=== PATIENT | female | born 1940 | race Caucasian/White ===

== ENCOUNTER 2019-06-20 13:23 | Day surgery (SDC) | payer MEDICARE, OTHER ==
[~2019-06-20 13:23] MED LIST: ASPI81CH; HYDR1TAB94 PO; LOSA25 PO; METF500C; MINO50; PRAV20; Percocet 5-3251 EACH PO
== END 2019-06-20 22:53 | disposition home or self-care (01) ==
LOC: WOUND 13:23
DX: E11.622 Type 2 diabetes mellitus with other skin ulcer (principal); L97.821 Non-pressure chronic ulcer of other part of left lower leg limited to breakdown of skin; L97.811 Non-pressure chronic ulcer of other part of right lower leg limited to breakdown of skin; I87.2 Venous insufficiency (chronic) (peripheral); I10 Essential (primary) hypertension; E11.42 Type 2 diabetes mellitus with diabetic polyneuropathy
CPT/HCPCS: G0463

== ENCOUNTER 2019-06-24 01:22 | Day surgery (SDC) | payer MEDICARE, OTHER | END 2019-06-24 22:52 | disposition home or self-care (01) | LOC: WOUND 01:22 | DX: Z53.9 Procedure and treatment not carried out, unspecified reason (principal) ==

== ENCOUNTER 2019-06-27 00:09 | Day surgery (SDC) | payer MEDICARE, OTHER | END 2019-06-27 22:42 | disposition home or self-care (01) | LOC: WOUND 00:09 | DX: L97.821 Non-pressure chronic ulcer of other part of left lower leg limited to breakdown of skin (principal); I87.2 Venous insufficiency (chronic) (peripheral); E11.51 Type 2 diabetes mellitus with diabetic peripheral angiopathy without gangrene; I10 Essential (primary) hypertension ==

== ENCOUNTER 2019-07-09 00:36 | Day surgery (SDC) | payer MEDICARE, OTHER | END 2019-07-09 22:36 | disposition home or self-care (01) | LOC: WOUND 00:36 | DX: E11.622 Type 2 diabetes mellitus with other skin ulcer (principal); L97.822 Non-pressure chronic ulcer of other part of left lower leg with fat layer exposed; E11.42 Type 2 diabetes mellitus with diabetic polyneuropathy; E11.51 Type 2 diabetes mellitus with diabetic peripheral angiopathy without gangrene; I73.9 Peripheral vascular disease, unspecified; I87.2 Venous insufficiency (chronic) (peripheral) ==

== ENCOUNTER 2019-07-18 00:19 | Day surgery (SDC) | payer MEDICARE, OTHER | END 2019-07-18 23:03 | disposition home or self-care (01) | LOC: WOUND 00:19 | DX: E11.622 Type 2 diabetes mellitus with other skin ulcer (principal); L97.821 Non-pressure chronic ulcer of other part of left lower leg limited to breakdown of skin; I87.2 Venous insufficiency (chronic) (peripheral); E11.42 Type 2 diabetes mellitus with diabetic polyneuropathy; E11.51 Type 2 diabetes mellitus with diabetic peripheral angiopathy without gangrene; I10 Essential (primary) hypertension | CPT/HCPCS: G0463 ==

== ENCOUNTER 2019-11-07 00:19 | Day surgery (SDC) | payer MEDICARE, OTHER ==
[~2019-11-07 00:19] MED LIST changes: +BASAGLAR K100 UNIT/1 SC; +CEPH500 PO
== END 2019-11-07 22:35 | disposition home or self-care (01) ==
LOC: WOUND 00:19
DX: I87.2 Venous insufficiency (chronic) (peripheral) (principal); L97.821 Non-pressure chronic ulcer of other part of left lower leg limited to breakdown of skin; L97.811 Non-pressure chronic ulcer of other part of right lower leg limited to breakdown of skin; E11.42 Type 2 diabetes mellitus with diabetic polyneuropathy; E11.622 Type 2 diabetes mellitus with other skin ulcer; I11.9 Hypertensive heart disease without heart failure; Z79.82 Long term (current) use of aspirin; Z79.4 Long term (current) use of insulin

== ENCOUNTER 2019-11-14 00:12 | Day surgery (SDC) | payer MEDICARE, OTHER | END 2019-11-14 23:06 | disposition home or self-care (01) | LOC: WOUND 00:12 | DX: E11.622 Type 2 diabetes mellitus with other skin ulcer (principal); E11.42 Type 2 diabetes mellitus with diabetic polyneuropathy; I11.9 Hypertensive heart disease without heart failure; I87.2 Venous insufficiency (chronic) (peripheral); L97.821 Non-pressure chronic ulcer of other part of left lower leg limited to breakdown of skin; L97.811 Non-pressure chronic ulcer of other part of right lower leg limited to breakdown of skin; Z79.899 Other long term (current) drug therapy; Z79.82 Long term (current) use of aspirin; Z79.4 Long term (current) use of insulin ==

== ENCOUNTER 2019-11-21 00:20 | Day surgery (SDC) | payer MEDICARE, OTHER | END 2019-11-21 22:35 | disposition home or self-care (01) | LOC: WOUND 00:20 | DX: I87.2 Venous insufficiency (chronic) (peripheral) (principal); L97.821 Non-pressure chronic ulcer of other part of left lower leg limited to breakdown of skin; L97.811 Non-pressure chronic ulcer of other part of right lower leg limited to breakdown of skin ==

== ENCOUNTER 2019-12-18 00:46 | Day surgery (SDC) | payer MEDICARE, OTHER | END 2019-12-18 22:38 | disposition home or self-care (01) | LOC: WOUND 00:46 | DX: I87.2 Venous insufficiency (chronic) (peripheral) (principal); L97.821 Non-pressure chronic ulcer of other part of left lower leg limited to breakdown of skin; L97.811 Non-pressure chronic ulcer of other part of right lower leg limited to breakdown of skin ==

== ENCOUNTER 2019-12-25 00:58 | Day surgery (SDC) | payer MEDICARE, OTHER | END 2019-12-25 12:00 | disposition home or self-care (01) | LOC: WOUND 00:58 | DX: E11.622 Type 2 diabetes mellitus with other skin ulcer (principal); L97.822 Non-pressure chronic ulcer of other part of left lower leg with fat layer exposed; E11.52 Type 2 diabetes mellitus with diabetic peripheral angiopathy with gangrene; I96 Gangrene, not elsewhere classified; I87.2 Venous insufficiency (chronic) (peripheral); E11.36 Type 2 diabetes mellitus with diabetic cataract; H26.9 Unspecified cataract; I89.0 Lymphedema, not elsewhere classified; G47.30 Sleep apnea, unspecified; M19.90 Unspecified osteoarthritis, unspecified site; E11.40 Type 2 diabetes mellitus with diabetic neuropathy, unspecified; I50.9 Heart failure, unspecified; F41.8 Other specified anxiety disorders; F41.9 Anxiety disorder, unspecified; Z79.82 Long term (current) use of aspirin; Z79.4 Long term (current) use of insulin; Z79.899 Other long term (current) drug therapy | CPT/HCPCS: G0463 ==

== ENCOUNTER 2020-08-05 17:30 | Emergency (ER) | payer MEDICARE, OTHER ==
[~2020-08-05] VITALS: Ht 162.6 cm; Wt 113.4 kg
[2020-08-05 18:03] LABS: BASOPHILS ABSOLUTE AUTO 0.04 K/mm3 (0.00-0.23); BASOPHILS PERCENT AUTO 1 % (0-2); EOSINOPHILS ABSOLUTE AUTO 0.11 K/mm3 (0.00-0.68); EOSINOPHILS PERCENT AUTO 2 % (0-6); Hematocrit 43.4 % (33.0-51.0); Hemoglobin 14.6 g/dL (11.5-16.0); IMMATURE GRAN ABSOLUTE AUTO 0.02 K/mm3 (0.00-0.10); IMMATURE GRAN PERCENT AUTO 0 % (0-1); LYMPHOCYTES PERCENT AUTO 27 % (21-46); MONOCYTES ABSOLUTE AUTO 0.39 K/mm3 (0.16-1.47); MONOCYTES PERCENT AUTO 7 % (4-13); Mean Corpuscular HGB 29.1 pg (26.0-34.0); Mean Corpuscular HGB Conc 33.6 g/dL (31.5-36.5); Mean Corpuscular Volume 87 fL (80-100); Mean Platelet Volume 9.1 fL (9.1-12.4); NEUTROPHILS ABSOLUTE AUTO 3.47 K/mm3 (1.96-9.15); NEUTROPHILS PERCENT AUTO 63 % (41-73); Platelet Count 237 K/mm3 (150-400); RDW Coefficient Variation 13.8 % (11.7-14.2); Red Blood Cell Count 5.01 M/mm3 (3.80-5.20); White Blood Cell Count 5.53 K/mm3 (4.00-11.30)
[2020-08-05 18:37] LABS: Alanine Aminotransfer (ALT/SGP 25 U/L (12-78); Albumin, Blood 3.5 g/dL (3.4-5.0); Albumin/Globulin Ratio 0.9 (0.8-1.8); Alk Phos 101 U/L (50-136); Anion Gap 6 mmol/L (6-16); Aspartate Aminotrans (AST/SGOT 14 U/L (12-37); Bilirubin, Total 0.4 mg/dL (0.1-1.0); Blood Urea Nitrogen 15 mg/dL (8-24); Bun/Creatinine Ratio 20.8 (12.0-20.0); CO2, Blood 26 mmol/L (21-32); Calcium, Blood 9.1 mg/dL (8.5-10.1); Chloride, Blood 105 mmol/L (98-108); Creatinine, Blood 0.72 mg/dL (0.40-1.00); Globulin, Blood 3.8 g/dL (2.2-4.0); Glomerular Filtration Rate >60 (60-); Glucose, Blood 283 mg/dL (70-99); Potassium, Blood 4.2 mmol/L (3.5-5.5); Sodium, Blood 137 mmol/L (136-145); Total Protein, Blood 7.3 g/dL (6.4-8.2)
[2020-08-05] MEDS ORDERED: TRAM50 PO (22:24)
[2020-08-05] MEDS ORDERED: AMOCLA875 PO (22:40)
[2020-08-05] MEDS ORDERED: MUPIROCIN1 G1 TOP (22:40)
== END 2020-08-05 23:30 | disposition home or self-care (01) ==
LOC: ER 17:30
PROVIDERS: Physician Assistant
DX: L03.116 Cellulitis of left lower limb (principal); E11.9 Type 2 diabetes mellitus without complications; Z86.73 Personal history of transient ischemic attack (TIA), and cerebral infarction without residual deficits; Z79.82 Long term (current) use of aspirin; Z79.899 Other long term (current) drug therapy; Z79.4 Long term (current) use of insulin
CPT/HCPCS: 36415; 73590; 80053; 83690; 84145; 85025; 99283-25; A9270

== ENCOUNTER 2020-09-09 02:58 | Day surgery (SDC) | payer MEDICARE, OTHER ==
[~2020-09-09 02:58] MED LIST changes: +AMOCLA875 PO; +MUPIROCIN1 G1 TOP; +TRAM50 PO
== END 2020-09-09 23:32 | disposition home or self-care (01) ==
LOC: WOUND 02:58
DX: E11.622 Type 2 diabetes mellitus with other skin ulcer (principal); L97.822 Non-pressure chronic ulcer of other part of left lower leg with fat layer exposed; I87.323 Chronic venous hypertension (idiopathic) with inflammation of bilateral lower extremity
CPT/HCPCS: A9270; G0463

== ENCOUNTER 2020-09-17 01:38 | Day surgery (SDC) | payer MEDICARE, OTHER | END 2020-09-17 23:37 | disposition home or self-care (01) | LOC: WOUND 01:38 | DX: E11.622 Type 2 diabetes mellitus with other skin ulcer (principal); L97.822 Non-pressure chronic ulcer of other part of left lower leg with fat layer exposed; I87.332 Chronic venous hypertension (idiopathic) with ulcer and inflammation of left lower extremity; I87.321 Chronic venous hypertension (idiopathic) with inflammation of right lower extremity | CPT/HCPCS: A9270; G0463 ==

== ENCOUNTER 2020-10-01 00:47 | Day surgery (SDC) | payer MEDICARE, OTHER | END 2020-10-01 22:44 | disposition home or self-care (01) | LOC: WOUND 00:47 | DX: E11.622 Type 2 diabetes mellitus with other skin ulcer (principal); L97.922 Non-pressure chronic ulcer of unspecified part of left lower leg with fat layer exposed; I87.323 Chronic venous hypertension (idiopathic) with inflammation of bilateral lower extremity | CPT/HCPCS: A9270 ==

== ENCOUNTER 2020-10-08 02:17 | Day surgery (SDC) | payer MEDICARE, OTHER ==
[~2020-10-08 02:17] MED LIST changes: -ASPI81CH; +ASPI81CH PO; -PRAV20; +PRAV20 PO
== END 2020-10-08 22:40 | disposition home or self-care (01) ==
LOC: WOUND 02:17
DX: E11.622 Type 2 diabetes mellitus with other skin ulcer (principal); L97.822 Non-pressure chronic ulcer of other part of left lower leg with fat layer exposed; I87.323 Chronic venous hypertension (idiopathic) with inflammation of bilateral lower extremity
CPT/HCPCS: A9270

== ENCOUNTER 2020-10-22 08:00 | Day surgery (SDC) | payer MEDICARE, OTHER | END 2020-10-22 23:59 | disposition home or self-care (01) | LOC: WOUND 08:00 | DX: E11.622 Type 2 diabetes mellitus with other skin ulcer (principal); I87.333 Chronic venous hypertension (idiopathic) with ulcer and inflammation of bilateral lower extremity; L97.822 Non-pressure chronic ulcer of other part of left lower leg with fat layer exposed | CPT/HCPCS: A9270 ==

== ENCOUNTER 2020-10-26 19:04 | Inpatient (IN) | payer MEDICARE, OTHER ==
[~2020-10-26] VITALS: Ht 162.6 cm; Wt 117.1 kg
[2020-10-26 19:35] LABS: BASOPHILS ABSOLUTE AUTO 0.03 K/mm3 (0.00-0.23); BASOPHILS PERCENT AUTO 0 % (0-2); EOSINOPHILS ABSOLUTE AUTO 0.08 K/mm3 (0.00-0.68); EOSINOPHILS PERCENT AUTO 1 % (0-6); Hematocrit 48.2 % (33.0-51.0); Hemoglobin 16.7 g/dL (11.5-16.0); IMMATURE GRAN ABSOLUTE AUTO 0.02 K/mm3 (0.00-0.10); IMMATURE GRAN PERCENT AUTO 0 % (0-1); LYMPHOCYTES ABSOLUTE AUTO 1.02 K/mm3 (0.84-5.20); LYMPHOCYTES PERCENT AUTO 14 % (21-46); MONOCYTES ABSOLUTE AUTO 0.55 K/mm3 (0.16-1.47); MONOCYTES PERCENT AUTO 8 % (4-13); Mean Corpuscular HGB Conc 34.6 g/dL (31.5-36.5); Mean Corpuscular Volume 84 fL (80-100); Mean Platelet Volume 9.3 fL (9.1-12.4); NEUTROPHILS ABSOLUTE AUTO 5.68 K/mm3 (1.96-9.15); NEUTROPHILS PERCENT AUTO 77 % (41-73); Platelet Count 249 K/mm3 (150-400); RDW Coefficient Variation 14.1 % (11.7-14.2); Red Blood Cell Count 5.75 M/mm3 (3.80-5.20); White Blood Cell Count 7.38 K/mm3 (4.00-11.30)
[2020-10-26 19:53] LABS: Albumin, Blood 3.8 g/dL (3.4-5.0); Albumin/Globulin Ratio 0.9 (0.8-1.8); Calcium, Blood 8.7 mg/dL (8.5-10.1); Creatinine, Blood 0.98 mg/dL (0.40-1.00); Globulin, Blood 4.2 g/dL (2.2-4.0); Potassium, Blood 3.8 mmol/L (3.5-5.5)
[2020-10-26 23:40] LABS: Base Excess Venous -1.8 mmol/L; Bicarbonate Venous 22.1 mmol/L (24.0-30.0); PCO2 Venous 50.1 mmHg (38-42); PO2 Venous 53.8 mmHg (38-42)
[2020-10-27 03:19] LABS: SARS-Cov-2 (COVID-19) PCR, MMC NEGATIVE (NEGATIVE)
[2020-10-27] MEDS ORDERED: Voltaren100 GM TOP (09:57)
--- NOTE | 2020-10-27 10:59 | NUR ---
ARRIVED FROM ED VIA Emeli MARTINEZ&CARINA, TRANSFERRED TO BED WITH ASSIST, PT IS WEAK, DEPENDS AND CLOTHES SATURATED WITH URINE, PT ASSISTED TO WASH UP, NEW DEPENDS AND GOWN GIVEN, CBG 357, DR. MONREAL NOTIFIED, SHAISTA LSS ORDERED.
--- NOTE | 2020-10-27 12:51 | NUR ---
PT TRANSFERRED VIA GURNY FROM FLOOR. History, Chart, Medications and Allergies reviewed before start of procedure. Lungs clear T/O to Auscultation. Patient confirms NPO status and agrees with scheduled surgery. Patient confirms NPO status and agrees with scheduled surgery.
--- NOTE | 2020-10-27 12:58 | NUR ---
PT'S WEDDING RING PLACED BY PT INTO THE ZIPPER POUCH OF HER PURSE AND WAS LEFT IN HER ROOM.
--- NOTE | 2020-10-27 17:13 | NUR ---
PT WITH DISCOLORATION AROUND MOUTH SHE STATES THAT THIS HAS BEEN LIKE THIS FOR A LONG TIME DUE TO ATB SHE WAS TAKING AT SOME PERIOD OF TIME
--- NOTE | 2020-10-27 17:56 | NUR ---
ARRIVED FROM PACU VIA NORMARMICHAEL, AWAKE, A&OX4, C/O BACK PAIN, RATES INCISIONAL PAIN AT 2/10, DENIES ANY NAUSEA, MIDLINE KADIE DSG INTACT, PIN POINT SIZED SS DRAINAGE NOTED ON DSG, MONITOR AND ANY CHANGES, REPORT TO NOC RN.
--- NOTE | 2020-10-28 06:16 | NUR ---
SHIFT SUMMARY POD1 UMBILICAL HERNIA REPAIR, A/O X4, VSS, TOLERATING CLEAR DIET, VOIDING INCONTINENTLY c ATTENDS IN PLACE, NO BM THIS SHIFT, PAIN WELL MANAGED PER EMAR, NO ACUTE EVENTS THIS SHIFT. CALL LIGHT IN REACH, WILL CTM AND REPORT TO DAY RN.
--- NOTE | 2020-10-28 17:18 | NUR ---
PT HAD SOME NAUSEA; MED WITH ZOFRAN. HAD EMESIS; CALLED DR AND GOT PHENERGAN ORDERED AND ADMINISTERED. HAD SECOND EPISODE OF EMESIS. WILL PUT IN ABD XRAY IF EMESIS PERSISTS.
--- NOTE | 2020-10-28 19:18 | NUR ---
SHIFT SUMMARY PT HAS BEEN A/O X4 TODAY. S/P HERNIA REPAIR. PT HAS NOT PASSED FLATUS OR HAD BM, AND THIS AFTERNOON HAS HAD SEVERAL EPISODES OF EMESIS DESPITE MEDICATION. BOWEL TONES ARE HYPOACTIVE. PAIN HAS BEEN MANAGED WITH PO PAIN MED PRN PER ORDERS. SHE HAS WORKED WITH THERAPY WHO IS RECCOMENDING SNF FOR REHAB.
--- NOTE | 2020-10-29 07:19 | NUR ---
SHIFT SUMMARY POD2 UMBILICAL HERNIA REPAIR, A/O X4 THOUGH SHE HAS HAD SOME MILD CONFUSION PARTWAY THROUGH THE SHIFT BUT NOT IMPULSIVE, C/O N/V, CXR OBTAINED PER ORDER AND AWAITING RESULTS, N/V SUBSIDED DURING THE MIDDLE PART OF THE SHIFT AND RESUMED JUST BEFORE MORNING VITALS, PT WEAK ON HER FEET c VERY SLOW SHIFTING OF HER FEET WHEN SHE WALKS, ONLY ABLE TO DO SHORT STANDS AND STAND PIVOTS, PAIN WELL MANAGED. NO OTHER EVENTS THIS SHIFT. CALL LIGHT IN REACH, REPORT GIVEN TO DAY RN.
--- NOTE | 2020-10-29 16:49 | NUR ---
SHIFT SUMMARY PT HAS BEEN A/O THIS SHIFT. SHE SEEMED SLIGHTLY CONFUSED THIS MORNING, BUT THIS HAS CLEARED UP T/O THE DAY. SHE WORKED WITH THERAPY TODAY AND HAS BEEN SITTING UP IN RECLINER CHAIR MOST OF THE SHIFT. WOUND CENTER CONSULTED TODAY FOR LLE WOUND. PAIN MANAGED WITH PO PAIN MED PRN PER ORDER. PT HAS NOT HAD EMESIS TODAY BUT HAS NOT BEEN TOLERATING MUCH PO INTAKE. SHE HAS BEEN OKAY'D TO SIP ON WATER TODAY BY DR GOMES. PT HAS NOT HAD FLATUS OR BM TODAY; PROVIDER AWARE. PLAN IS TO DC TO SNF, POSSIBLY MONDAY.
--- NOTE | 2020-10-30 04:10 | NUR ---
SHIFT SUMMARY NO ACUTE CHANGES THIS SHIFT. PT RESTED WELL T/O NIGHT. KADIE DRESSING REMAINS UNCHANGED. PT REPORTS FLATUS. X1 PAIN PILL AT BEGINNING OF SHIFT. PULL UPS CHANGED PRN FOR INCONTINENCE. PT USES CALL LIGHT APPROPRIATELY.
[2020-10-30 05:04] LABS: BASOPHILS ABSOLUTE AUTO 0.05 K/mm3 (0.00-0.23); BASOPHILS PERCENT AUTO 1 % (0-2); EOSINOPHILS ABSOLUTE AUTO 0.14 K/mm3 (0.00-0.68); EOSINOPHILS PERCENT AUTO 2 % (0-6); Hematocrit 45.2 % (33.0-51.0); Hemoglobin 14.5 g/dL (11.5-16.0); IMMATURE GRAN ABSOLUTE AUTO 0.03 K/mm3 (0.00-0.10); IMMATURE GRAN PERCENT AUTO 1 % (0-1); LYMPHOCYTES ABSOLUTE AUTO 1.34 K/mm3 (0.84-5.20); LYMPHOCYTES PERCENT AUTO 22 % (21-46); MONOCYTES ABSOLUTE AUTO 0.73 K/mm3 (0.16-1.47); MONOCYTES PERCENT AUTO 12 % (4-13); Mean Corpuscular HGB 28.8 pg (26.0-34.0); Mean Corpuscular HGB Conc 32.1 g/dL (31.5-36.5); Mean Corpuscular Volume 90 fL (80-100); Mean Platelet Volume 9.1 fL (9.1-12.4); NEUTROPHILS ABSOLUTE AUTO 3.71 K/mm3 (1.96-9.15); NEUTROPHILS PERCENT AUTO 62 % (41-73); Platelet Count 270 K/mm3 (150-400); RDW Coefficient Variation 14.2 % (11.7-14.2); RDW Standard Deviation 46.7 fL (35.1-46.3); Red Blood Cell Count 5.04 M/mm3 (3.80-5.20)
[2020-10-30 05:36] LABS: Anion Gap 9 mmol/L (6-16); Blood Urea Nitrogen 34 mg/dL (8-24); CO2, Blood 31 mmol/L (21-32); Calcium, Blood 8.5 mg/dL (8.5-10.1); Chloride, Blood 99 mmol/L (98-108); Creatinine, Blood 0.83 mg/dL (0.40-1.00); Glomerular Filtration Rate >60 (60-); Glucose, Blood 139 mg/dL (70-99); Potassium, Blood 3.4 mmol/L (3.5-5.5); Sodium, Blood 139 mmol/L (136-145)
[2020-10-30] MEDS ORDERED: ONDA4ODT MM (10:57)
[2020-10-30] MEDS ORDERED: PROM25 PO (10:57)
[2020-10-30] MEDS ORDERED: VISBIOME 112.51 EACH PO (10:58)
[2020-10-30] MEDS ORDERED: HYDR1TAB94 PO (10:58)
[2020-10-30] MEDS ORDERED: KLOR-CON 1010 ME3 PO (10:59)
--- NOTE | 2020-10-30 12:43 | NUR ---
CLEANSE WITH NS, PAT DRY GAUZE, APPLY CALCIUM ALGINATE TO WOUND BED, COVER WITH EXU-DRY, APLLY COBAN 2 LAYER COMPRESSION. OKAY TO USE 3 LAYER IF COBAN NOT AVAILABLE. CHANGE 2X WEEKLY
[2020-10-30 14:09] LABS: SARS-Cov-2 (COVID-19) PCR, MMC NEGATIVE (NEGATIVE)
--- NOTE | 2020-10-30 18:43 | NUR ---
SHIFT SUMMARY PT POD #3 FOR INCARCERATED HERNIA REPAIR WITH MESH. PT REPORTS NO PAIN AND KADIE DRESSING AT [facility] [employer]. WOUND DRESSING ON LEG CHANGED TODAY BY FORMULA TECHNICIAN AND NEW WOUND DRESSING ORDERS IN EMR. PT EXPERIENCED TWO EPISODES OF EMESIS TODAY AND WAS TREATED PER EMR. HAVING A HARD TIME TOLERATING PO INTAKE WITHOUT VOMITING. PLAN IS FOR THE PT TO DC TO [facility] TOMORROW AT 1400. VSS. WILL REPORT TO ONCOMING RN.
--- NOTE | 2020-10-30 20:44 | NUR ---
NOTIFIED DR. GOMES OF EMESIS. ORDERS TO MAKE PT NPO AND TO MOBILIZE PT.
--- NOTE | 2020-10-31 04:27 | NUR ---
PT TRYING TO GET OOB AND VERY CONFUSED. SHE THOUGHT SHE WAS AT HOME AND HEARING HER DOG BARK OUTSIDE. REORIENTED AND REPOSITIONED BACK IN BED. PT APPEARED TO BE DIAPHORETIC AND COMPLAINED OF INDIGESTION. VITALS TAKEN. HEART RATE IRREGULAR SOUNDING UPON AUSCULTATION AND RADIAL PULSE ALSO FELT TO BE IRREGULAR. VITAL SIGN MACHINE COULD NOT GET AN ACCURATE READING ON HEART RATE. PT ALSO DESATTING TO 88% ON RA. 2L VIA NC PLACED. DR. MONREAL NOTIFIED OF CHANGES. NEW ORDERS TO PLACE TELE AND ADD TROPONINS ONTO MORNING LABS. BED ALARM IN PLACE FOR SAFETY. WILL CONT TO MONITOR.
--- NOTE | 2020-10-31 04:36 | NUR ---
SHIFT SUMMARY PT HAS BEEN ALERT AND ORIENTED ALL NIGHT UNTIL RECENTLY (SEE NURSE NOTE). PT HAS BEEN VOMITTING LARGE AMOUNTS OF EMESIS AND CONSTANTLY NAUSEATED. ANTIEMETICS INEFFECTIVE. BTS HYPOACTIVE AND PT DENIES FLATUS. DR. GOMES NOTIFIED. PT MADE NPO. INCONTINENT OF URINE AND CHANGING ATTENDS PRN. PT VERY WEAK AND IS A 2 MAX ASSIST OOB. NEW ORDER BY HOSPITALIST TO PLACE TELE TO MONITOR CARDIAC STATUS (SEE NURSE NOTE). BED ALARM IN PLACE FOR SAFETY AT THIS TIME. CALL LIGHT WITHIN REACH.
--- NOTE | 2020-10-31 06:03 | NUR ---
[employer] NOTIFIED THIS RN OF HEART RATE IN THE 200S AND SUSTAINING 160-190S. DR. MONREAL NOTIFIED. ORDERS TO TRANSFER TO PCU STATUS. NEW ORDERS ENTERED FOR CARDIZEM DRIP TO BE STARTED ONCE IN PCU. REPORT GIVEN TO FORESTRY INSTRUCTOR.
[2020-10-31 06:18] LABS: BASOPHILS ABSOLUTE AUTO 0.05 K/mm3 (0.00-0.23); BASOPHILS PERCENT AUTO 0 % (0-2); Hematocrit 47.5 % (33.0-51.0); LYMPHOCYTES ABSOLUTE AUTO 0.76 K/mm3 (0.84-5.20); LYMPHOCYTES PERCENT AUTO 7 % (21-46); MONOCYTES ABSOLUTE AUTO 1.36 K/mm3 (0.16-1.47); MONOCYTES PERCENT AUTO 12 % (4-13); Mean Corpuscular HGB 29.1 pg (26.0-34.0); Mean Corpuscular HGB Conc 33.7 g/dL (31.5-36.5); Mean Corpuscular Volume 86 fL (80-100); Mean Platelet Volume 9.4 fL (9.1-12.4); Platelet Count 273 K/mm3 (150-400); RDW Coefficient Variation 13.8 % (11.7-14.2); RDW Standard Deviation 43.8 fL (35.1-46.3); White Blood Cell Count 11.68 K/mm3 (4.00-11.30)
[2020-10-31 06:24] LABS: EOSINOPHILS ABSOLUTE AUTO 0.01 K/mm3 (0.00-0.68); EOSINOPHILS PERCENT AUTO 0 % (0-6); IMMATURE GRAN ABSOLUTE AUTO 0.08 K/mm3 (0.00-0.10); IMMATURE GRAN PERCENT AUTO 1 % (0-1); NEUTROPHILS ABSOLUTE AUTO 9.42 K/mm3 (1.96-9.15); NEUTROPHILS PERCENT AUTO 81 % (41-73)
[2020-10-31 06:55] LABS: Alanine Aminotransfer (ALT/SGP 16 U/L (12-78); Albumin, Blood 2.7 g/dL (3.4-5.0); Albumin/Globulin Ratio 0.6 (0.8-1.8); Alk Phos 79 U/L (50-136); Anion Gap 10 mmol/L (6-16); Aspartate Aminotrans (AST/SGOT 30 U/L (12-37); Bilirubin, Total 0.7 mg/dL (0.1-1.0); Blood Urea Nitrogen 40 mg/dL (8-24); Bun/Creatinine Ratio 46.6 (12.0-20.0); CO2, Blood 33 mmol/L (21-32); Calcium, Blood 8.3 mg/dL (8.5-10.1); Chloride, Blood 95 mmol/L (98-108); Creatinine, Blood 0.86 mg/dL (0.40-1.00); Globulin, Blood 4.2 g/dL (2.2-4.0); Glomerular Filtration Rate >60 (60-); Glucose, Blood 76 mg/dL (70-99); Sodium, Blood 138 mmol/L (136-145); Total Protein, Blood 6.9 g/dL (6.4-8.2)
--- NOTE | 2020-10-31 12:58 | NUR ---
UPDATE PT'S DAUGHTER UPDATED ON PT'S TRANSFER TO UNIT AND STATUS.
--- NOTE | 2020-10-31 15:03 | NUR ---
UPDATE/IV INFILTRATION AMIO GTT INFILTRATED IN PT'S R AC. PHARMACY NOTIFIED, INSTRUCTED TO PLACE ICE AND CAN REQUEST PRESCRIPTION FOR HYDROCORTISONE CREAM IF PT UNCOMFORTABLE. PHYSICIAN NOTIFIED. PT HAS LITTLE DISCOMFORT AT THIS TIME.
--- NOTE | 2020-10-31 15:44 | NUR ---
CARDIOLOGY UPDATE CARDIOLOGY CONSULTED D/T PT CONT TO HAVE HIGH HR. DR. WELLS ORDERS TO HAVE ANOTHER AMIO GTT BOLUS AT THIS TIME. DIG LOADING, SEE EMAR. ORDERS FOR LOPRESSOR PUSH IF HR SUSTAINS OVER 110.
--- NOTE | 2020-10-31 16:30 | NUR ---
UPDATE PT'S HR TRENDING DOWN AFTER LOPRESSOR PUSH. HR IN 70'S-80'S. CARDIOLOGY INSTRUCTED TO HOLD AMIO GTT BOLUS.
--- NOTE | 2020-10-31 17:00 | NUR ---
PHYSICIAN UPDATED PHYSICIAN AWARE OF PT'S HYPERTENSIVE STATE AND THAT JVD IS NOTED AT THIS TIME. PHYSICIAN TO PLACE ORDERS
--- NOTE | 2020-10-31 18:08 | NUR ---
SHIFT SUMMARY PT LETHARGIC. ALERT. BED ALARM IN PLACE FOR REPORTS OF OCCASIONAL CONFUSION. DAUGHTER UPDATED ON PT'S TRANSFER TO UNIT AND STATUS. HR TACHY, SEE NOTES AND EMAR. PT HYPERTENSIVE AND JVD NOTED. SEE NOTES AND EMAR. PHYSICIAN AWARE. PT TURNED Q 2 HRS. DRESSING ON ABD WNL. NO DRAINAGE NOTES. PT REPORTS PAIN T/O SHIFT AND HAS N/V T/O SHIFT. DEPENDS IN PLACE FOR INCONTINENCE. OXYGEN SATURAITON MAINTAINED ABOVE 92% ON 3 L VIA NC. WILL CONT TO MONITOR UNTIL REPROT GIVEN TO NIGHTSHIFT RN.
--- NOTE | 2020-10-31 18:48 | NUR ---
UPDATE DR. GOMES UPDATED ON PT REGARDING HYPERTENSION, HIGH HR, PAIN AND N/V. PHYSICIAN TO PUT ORDERS IN FOR CT SCAN OF ABD AND NG TUBE IF N/V PERSISTS.
--- NOTE | 2020-11-01 03:13 | NUR ---
DR. MONREAL UPDATED ON PATIENT HR SUSTAINING IN THE 140'S EVEN ON AMIO DRIP RUNNING AND WITH 3 METO PUSHES SO FAR THIS SHIFT. WILL DROP BACK TO 80'S-90'S FOR SHORT TIME THEN BACK UP TO 140'S-150'S. VSS. ASYMPTOMATIC RESTING IN BED. BLOOD CULTURES AND FLUID BOLUS ORDERED. WILL CONTINUE TO MONITOR.
[2020-11-01 03:41] LABS: BASOPHILS PERCENT AUTO 1 % (0-2); Hematocrit 44.6 % (33.0-51.0); Hemoglobin 14.5 g/dL (11.5-16.0); LYMPHOCYTES ABSOLUTE AUTO 0.52 K/mm3 (0.84-5.20); LYMPHOCYTES PERCENT AUTO 3 % (21-46); MONOCYTES ABSOLUTE AUTO 1.24 K/mm3 (0.16-1.47); MONOCYTES PERCENT AUTO 7 % (4-13); Mean Corpuscular HGB 29.1 pg (26.0-34.0); Mean Corpuscular HGB Conc 32.5 g/dL (31.5-36.5); Mean Corpuscular Volume 89 fL (80-100); Platelet Count 210 K/mm3 (150-400); RDW Coefficient Variation 14.1 % (11.7-14.2); Red Blood Cell Count 4.99 M/mm3 (3.80-5.20); White Blood Cell Count 17.82 K/mm3 (4.00-11.30)
[2020-11-01 03:47] LABS: EOSINOPHILS ABSOLUTE AUTO 0.06 K/mm3 (0.00-0.68); EOSINOPHILS PERCENT AUTO 0 % (0-6); IMMATURE GRAN ABSOLUTE AUTO 0.11 K/mm3 (0.00-0.10); IMMATURE GRAN PERCENT AUTO 1 % (0-1); NEUTROPHILS ABSOLUTE AUTO 15.79 K/mm3 (1.96-9.15); NEUTROPHILS PERCENT AUTO 89 % (41-73)
[2020-11-01 04:00] LABS: Alanine Aminotransfer (ALT/SGP 22 U/L (12-78); Albumin, Blood 2.3 g/dL (3.4-5.0); Albumin/Globulin Ratio 0.6 (0.8-1.8); Alk Phos 74 U/L (50-136); Anion Gap 11 mmol/L (6-16); Aspartate Aminotrans (AST/SGOT 49 U/L (12-37); Bilirubin, Total 0.9 mg/dL (0.1-1.0); Blood Urea Nitrogen 26 mg/dL (8-24); Bun/Creatinine Ratio 34.5 (12.0-20.0); CO2, Blood 29 mmol/L (21-32); Calcium, Blood 7.8 mg/dL (8.5-10.1); Chloride, Blood 99 mmol/L (98-108); Creatinine, Blood 0.75 mg/dL (0.40-1.00); Glomerular Filtration Rate >60 (60-); Glucose, Blood 315 mg/dL (70-99); Phosphorus, Blood 3.5 mg/dL (2.5-4.9); Potassium, Blood 3.5 mmol/L (3.5-5.5); Sodium, Blood 139 mmol/L (136-145); Total Protein, Blood 6.3 g/dL (6.4-8.2)
--- NOTE | 2020-11-01 06:43 | NUR ---
SHIFT SUMMARY PATIENT FOUND TO BE A PLEASANTLY CONFUSED LADY WHO IS ORIENTED TO SELF, FOLLOWING COMMANDS, WITH GEN WEAKNESS. ON 2L NC SATING MID 90'S. HR AND BP VERY LABILE THROUGH SHIFT WITH 4 METOPROL PUSHES AND 1 PRN VASOTEC GIVEN. SEE PREVIOUS NOTE FOR DETAILS. 500ML NS BOLUS GIVEN AND BLOOD CULTURES DRAWN. CURRENTLY AFIB IN THE 90'S AND BP STABLE. AMIO DRIP RUNNING PER ORDER. ABD CT DONE AND PENDING. HYPOACTIVE BOWEL SOUNDS BUT PASSING SOME FLATUS. NAUSEA INTERMITTENTLY BUT NO VOMITING. REMAINS NPO EXCEPT FOR OCCASIONAL ICE CHIP WHICH SHE TOLERATED. Q2H ORAL CARE. INCONTINENT OF URINE. ATTENDS IN PLACE. PAIN CONTROL BETTER WITH INCREASED DILAUDID DOSAGE. NO ACUTE CONCERNS AT THIS TIME. WILL CONTINUE TO MONITOR UNTIL REPORT GIVEN TO ALLYSON CROWE.
--- NOTE | 2020-11-01 14:36 | NUR ---
UPDATE PT CONVERTED TO AFIB. CARDIOLOGY NOTIFIED. ORDERS FOR HEPARIN GTT AND AMIO GTT PER CARDIOLOGY. DR. GOMES INFORMED OF HEPARIN GTT. NO OTHER ORDERS.
[2020-11-01 15:29] LABS: Source, Urine Catheter
[2020-11-01 15:30] LABS: International Normalized Ratio 1.26; Prothrombin Time Results 13.4 Sec (9.7-11.5)
[2020-11-01 15:32] LABS: Appearance, Urine Clear (Clear); Bilirubin, Urine Neg (Neg); Blood, Urine 1+ (Neg); Color, Urine Yellow (P-Yellow); Glucose Qualitative, Urine 3+ (Neg); Ketones, Urine 3+ (Neg); Leukocyte Esterase, Urine 1+ (Neg); Nitrite, Urine Pos (Neg); Protein, Urine 2+ (Neg); Urobilinogen, Urine 1+ (Normal)
[2020-11-01 15:39] LABS: Bacteria Many /hpf
[2020-11-01 15:41] LABS: Squamous Epithelial Cells Mod /hpf (Few); Yeast/Fungi Urine Mod /hpf
[2020-11-01 15:42] LABS: Granular Casts 0-2 /lpf (0); Red Blood Cells, Urine 0-2 /hpf (0-2)
--- NOTE | 2020-11-01 16:23 | NUR ---
UPDATE PT'S DAUGHTER DIANE UPDATED ON PT THIS AFTERNOON
--- NOTE | 2020-11-01 19:26 | NUR ---
SHIFT SUMMARY PT ALERT AND ORIENTED. CONFUSED AT TIMES. BED ALARM IN PLACE. HR TACHY. MEDICATED PER PHYSICIAN ORDER. SEE EMAR. PT CONVERTS BETWEEN SINUS TACH WITH PAC'S TO A-FIB. HEPARIN GTT, SEE EMAR. AMIODARONE GTT, SEE EMAR. CENTENO PLACED PER PROVIDER ORDER. NG TUBE PLACED PER PHYSICIAN ORDER. PT PULLED OUT NG TUBE AT END OF SHIFT. REFUSING TO ALLOW NURSING STAFF TO RE-INSERT AT THIS TIME. PT CURRENLTY HAVING NO VOMITING. PT TURNED Q 2 HRS. REPORTS PAIN AT TIMES. MEDICATED PER EMAR. OXYGEN SATURATION MAINTAINED ABOVE 92% ON 2-3 L OF OXYGEN VIA NC. WILL CONT TO MONITOR UNTIL REPORT GIVEN TO NIGHTSHIFT RN.
--- NOTE | 2020-11-01 20:00 | NUR ---
BEDSIDE REPORT AND VERIFICATION OF AMIODARONE & HEPARIN GTTS. PT W HOB 45*, CO NAUSEA, PULLED NG TUBE ON DAY SHIFT AND AFTER ATTEMPTS TO REPLACE, PT REFUSED. NO EMESIS AND TOLERATING SCANT ICE CHIP FOR ORAL COMFORT. ABD IS DISTENDED, W WOUND VAC TO MIDLINE. PT HAS FLUSHED APPEARANCE, LETHARGIC, RESPONDS TO VERBAL, BUT OTHERWISE MINIMALLY INTERACTIVE.
[2020-11-01] MEDS ORDERED: CITA20 PO (21:42)
[2020-11-01] MEDS ORDERED: FAMO20 PO (21:44)
[2020-11-01] MEDS ORDERED: DEXA6 (21:44)
[2020-11-01] MEDS ORDERED: ACET325 PO (21:47)
[2020-11-01] MEDS ORDERED: CARV3.125 PO (21:48)
[2020-11-01] MEDS ORDERED: FURO40 PO (21:49)
[2020-11-01] MEDS ORDERED: Ventolin5 MG/1 ML INH (21:53)
[2020-11-01] MEDS ORDERED: LORA.5 PO (21:56)
[2020-11-01] MEDS ORDERED: Mucus Relief400 MG PO (22:08)
[2020-11-01] MEDS ORDERED: LEVFLO500 PO (22:42)
[2020-11-01] MEDS ORDERED: MULVITA PO (22:50)
[2020-11-01] MEDS ORDERED: THERA-D2000 UNIT PO (22:56)
[2020-11-01] MEDS ORDERED: Calcium Carbon500 MG PO (22:57)
--- NOTE | 2020-11-02 03:15 | NUR ---
MED FOR ABD PAIN W DILAUDID, PT ALSO W AFIB RVR TO RATE OF 160, MED W IV LOPRESSOR. PT NOTED W SL MOTTLING OF KNEES/THIGHS. CONT TO RESPOND TO VOICE, BUT GEN REMAINS LETHARGIC. UNABLE TO DRAW FROM POWERGLIDE, WILL ASK LAB TO DRAW PERIPHERALLY.
[2020-11-02 06:11] LABS: BASOPHILS ABSOLUTE AUTO 0.12 K/mm3 (0.00-0.23); BASOPHILS PERCENT AUTO 1 % (0-2); Hematocrit 43.8 % (33.0-51.0); Hemoglobin 14.2 g/dL (11.5-16.0); LYMPHOCYTES PERCENT AUTO 4 % (21-46); MONOCYTES ABSOLUTE AUTO 0.77 K/mm3 (0.16-1.47); MONOCYTES PERCENT AUTO 4 % (4-13); Mean Corpuscular HGB 29.3 pg (26.0-34.0); Mean Corpuscular HGB Conc 32.4 g/dL (31.5-36.5); Mean Corpuscular Volume 91 fL (80-100); Mean Platelet Volume 9.7 fL (9.1-12.4); Platelet Count 214 K/mm3 (150-400); RDW Standard Deviation 47.2 fL (35.1-46.3); Red Blood Cell Count 4.84 M/mm3 (3.80-5.20); White Blood Cell Count 20.13 K/mm3 (4.00-11.30)
[2020-11-02 06:12] LABS: EOSINOPHILS PERCENT AUTO 0 % (0-6); IMMATURE GRAN PERCENT AUTO 1 % (0-1); NEUTROPHILS ABSOLUTE AUTO 18.34 K/mm3 (1.96-9.15); NEUTROPHILS PERCENT AUTO 91 % (41-73)
[2020-11-02 06:42] LABS: Albumin, Blood 1.7 g/dL (3.4-5.0); Albumin/Globulin Ratio 0.4 (0.8-1.8); Bilirubin, Total 0.8 mg/dL (0.1-1.0); Bun/Creatinine Ratio 32.5 (12.0-20.0); Calcium, Blood 7.7 mg/dL (8.5-10.1); Creatinine, Blood 1.14 mg/dL (0.40-1.00); Globulin, Blood 4.2 g/dL (2.2-4.0); Phosphorus, Blood 2.2 mg/dL (2.5-4.9); Potassium, Blood 3.2 mmol/L (3.5-5.5); Total Protein, Blood 5.9 g/dL (6.4-8.2)
--- NOTE | 2020-11-02 07:50 | NUR ---
UPDATE PHYSICIAN UPDATED ON PT'S WORSENING LUNG SOUNDS AND BLE MOTTLING. ORDERS FOR PALLIATIVE CARE AND CHEST X RAY. VS STABLE AT THIS TIME.
[2020-11-02 11:21] LABS: SARS-Cov-2 (COVID-19) PCR, MMC NEGATIVE (NEGATIVE)
--- NOTE | 2020-11-02 11:35 | NUR ---
Case Conference Note. Spoke with Primary RN Roxie and discussed case. Roxie expresses concerns that Pt has shown decline over the last couple of shifts. Pt starting to mottle in BLLE, worsening kideny and liver functions, and HR increasing. Spoke with Dr Holden and discussed case. Plan for Palliative Care to establish rapport and supportive role for now. Called and spoke with Pt's daughter Shantell who is listed as person to yawfify on Pt's face sheet. Offered supportive listening and provided update of plan of care. Shantell expresses appreciation of call. Palliative Care will remain available for supportive and therapeutic visits.
--- NOTE | 2020-11-02 16:16 | NUR ---
UPDATE PHYSICIAN UPDATED THAT PT HAS 190 ML OF URINE OUTPUT T/O SHIFT. BLADDER SCAN DONE. BLADDER SCAN, ZERO. PT'S DAUGHTER ALLOWED TO COME VISIT PER IMPREGNATOR ELECTROLYTIC CAPACITORS D/T PT STATUS.
--- NOTE | 2020-11-02 17:30 | NUR ---
PHYSICIAN UPDATED ON PT'S HR SUSTAINING IN 130'S AFTER IV METOPROLOL GIVEN. ORDERS FOR PO METOPROLOL SUCCINATE 25 MG BID AT THIS TIME.
[2020-11-02 17:33] LABS: Albumin, Blood 1.7 g/dL (3.4-5.0); Anion Gap 11 mmol/L (6-16); Blood Urea Nitrogen 47 mg/dL (8-24); Bun/Creatinine Ratio 27.5 (12.0-20.0); CO2, Blood 26 mmol/L (21-32); Calcium, Blood 7.5 mg/dL (8.5-10.1); Chloride, Blood 106 mmol/L (98-108); Creatinine, Blood 1.71 mg/dL (0.40-1.00); Glomerular Filtration Rate 29 (60-); Glucose, Blood 115 mg/dL (70-99); Phosphorus, Blood 2.6 mg/dL (2.5-4.9); Potassium, Blood 3.5 mmol/L (3.5-5.5); Sodium, Blood 143 mmol/L (136-145)
[2020-11-02 17:43] LABS: Hematocrit 43.3 % (33.0-51.0); Hemoglobin 13.8 g/dL (11.5-16.0); Mean Corpuscular HGB 28.8 pg (26.0-34.0); Mean Corpuscular HGB Conc 31.9 g/dL (31.5-36.5); Mean Corpuscular Volume 90 fL (80-100); Mean Platelet Volume 9.7 fL (9.1-12.4); Platelet Count 202 K/mm3 (150-400); RDW Standard Deviation 46.8 fL (35.1-46.3); Red Blood Cell Count 4.79 M/mm3 (3.80-5.20); White Blood Cell Count 22.64 K/mm3 (4.00-11.30)
[2020-11-02 18:04] LABS: BAND PERCENT MAN 14 % (0-8); BASOPHILS PERCENT MAN 0 % (0-2); EOSINOPHILS PERCENT MAN 0 % (0-6); LYMPHOCYTES ABSOLUTE MAN 0.45 K/mm3 (0.84-5.20); LYMPHOCYTES PERCENT MAN 2 % (21-46); MONOCYTES ABSOLUTE MAN 0.22 K/mm3 (0.16-1.47); MONOCYTES PERCENT MAN 1 % (4-13); NEUTROPHILS ABSOLUTE MAN 21.96 K/mm3 (1.96-9.15); SEG NEUTROPHILS PERCENT MAN 83 % (41-73); TOTAL CELLS COUNTED 100
--- NOTE | 2020-11-02 19:28 | NUR ---
SHIFT SUMMARY PT CONFUSED. ALERT AND TIMES. HR TACHY, SEE NOTES AND EMAR. BP STABLE. OXYGEN SATURATION MAINTAINED ABOVE 92% ON 6 L OF OXYGEN VIA NC. PT TURNED Q 2 HRS AND NEEDED FOR COMFORT. PT PROVIDED WITH ICE CHIPS AND SIPS OF WATER REQUESTED. NO VOMITING. PT REPORTS NAUSEA AT TIMES. MEDICATED PER EMAR. PT ABLE TO TOLERATE PO MEDICATIONS BY THIS EVENING. PBX MECHANIC ALLOWING FAMILY TO SIT WITH PT D/T PT DECLINE. BED ALARM IN PLACE. PHYSICIAN INFORMED OF LITTLE URINE OUTPUT. ORDERS TO INCREASE IV FLUIDS, AND FOR NIGHTSHIFT RN TO GIVE 500 ML OR 1000 ML BOLUS AT MIDNIGHT IF NO URINE OUTPUT. DRESSING ON ABD AND LLE C/D/I. REPORT GIVEN TO NIGHTSHIFT RN.
[2020-11-03 05:07] LABS: BASOPHILS ABSOLUTE AUTO 0.11 K/mm3 (0.00-0.23); BASOPHILS PERCENT AUTO 1 % (0-2); Hematocrit 40.3 % (33.0-51.0); Hemoglobin 12.6 g/dL (11.5-16.0); LYMPHOCYTES ABSOLUTE AUTO 0.74 K/mm3 (0.84-5.20); LYMPHOCYTES PERCENT AUTO 3 % (21-46); MONOCYTES ABSOLUTE AUTO 0.58 K/mm3 (0.16-1.47); MONOCYTES PERCENT AUTO 3 % (4-13); Mean Corpuscular HGB Conc 31.3 g/dL (31.5-36.5); Mean Corpuscular Volume 93 fL (80-100); Mean Platelet Volume 10.5 fL (9.1-12.4); Platelet Count 192 K/mm3 (150-400); RDW Coefficient Variation 14.3 % (11.7-14.2); RDW Standard Deviation 49.1 fL (35.1-46.3); Red Blood Cell Count 4.34 M/mm3 (3.80-5.20); White Blood Cell Count 22.67 K/mm3 (4.00-11.30)
[2020-11-03 05:12] LABS: EOSINOPHILS ABSOLUTE AUTO 0.02 K/mm3 (0.00-0.68); EOSINOPHILS PERCENT AUTO 0 % (0-6); IMMATURE GRAN ABSOLUTE AUTO 0.32 K/mm3 (0.00-0.10); IMMATURE GRAN PERCENT AUTO 1 % (0-1); NEUTROPHILS PERCENT AUTO 92 % (41-73)
[2020-11-03 05:43] LABS: Alanine Aminotransfer (ALT/SGP 44 U/L (12-78); Albumin, Blood 1.4 g/dL (3.4-5.0); Albumin/Globulin Ratio 0.4 (0.8-1.8); Alk Phos 77 U/L (50-136); Anion Gap 13 mmol/L (6-16); Aspartate Aminotrans (AST/SGOT 100 U/L (12-37); Bilirubin, Total 0.8 mg/dL (0.1-1.0); Blood Urea Nitrogen 56 mg/dL (8-24); Bun/Creatinine Ratio 21.1 (12.0-20.0); CO2, Blood 25 mmol/L (21-32); Calcium, Blood 6.6 mg/dL (8.5-10.1); Chloride, Blood 103 mmol/L (98-108); Creatinine, Blood 2.65 mg/dL (0.40-1.00); Globulin, Blood 3.9 g/dL (2.2-4.0); Glomerular Filtration Rate 17 (60-); Glucose, Blood 136 mg/dL (70-99); Phosphorus, Blood 3.7 mg/dL (2.5-4.9); Potassium, Blood 3.4 mmol/L (3.5-5.5); Sodium, Blood 141 mmol/L (136-145); Total Protein, Blood 5.3 g/dL (6.4-8.2); Vancomycin, Random 22.7 ug/mL
--- NOTE | 2020-11-03 06:19 | NUR ---
SHIFT SUMMARY ASUMED CARE OF PTAT 1899. PT IS A/OX3. DAUGHTER WAS SITTING IN PT ROOM, SHE WAS UPDATED BUT LEFT AROUND 0130 THIS AM BECAUSE SHE WAS WORRIED ABOUT GETTING COVID. HEART SOUNDS TACHY, PT RATE HAS BEEN ABOUT 120 T/O THE NIGHT. LUNG SOUNDS HAVE CRACKLESA T/O THE R LUNG AND IN THE BASES OF THE LEFT. PT STARTED THE SHIFT ON 6L NC, BUT IS NOW ON 3L WITH SATURATIONS ABOVE 90%. PT ABD IS STILL VERY DISTENDED AND TENDER, PT HAS BEEN VERY NEASEATED, MEDICATED PER EMAR. PT HAS SMAL WOUND VAC FROM SURGERY. BOWEL TONES HYPOACTIVE AND PT HAS NOT BEEN ABLE TO PASS GAS. PT URINE OUTPUT IS STILL POOR WITH ONLY 100CC T/O THE NIGHT. OF DARK SHANTEL URINE. PT HAS A SMALL WOUND ON HER BELLY, OPEN TO AIR. PT IS ABLE TO ANSWER ORIENTEATOIN QUESTIONS BUT GOT THE DATE MIXED UP, BUT KNEW IT WAS OCTOBER. DAUGHTER CONCERNED THAT PT DID NOT WANT TO TALK MUCH, PT STATED " CAUSE IM TIRED". CALL LIGHT IN REACH, BED IN LOWEST POSTION, BED ALARM ON.
--- NOTE | 2020-11-03 09:00 | NUR ---
ASSUMED CARE PT ALERT AND ORIENTED TO SELF, , AND FOLLOWING DIRECTIONS. PT DOES FALL ASLEEP DURING CONVERSATION, BUT AWAKENS TO VERBAL STIMULI. HR IS SINUS TACH 110. BP STABLE. O2 SATS >90% ON 3L NC. PT DENIES ANY PAIN, BUT STATES SHE "FEELS CRUMBY". CALLED DR. DEL REAL ABOUT MORNING LABS AND KIDNEY FUNCTION, ORDERS TO HOLD LASIX AND CONSULT NEPHROLOGY. WILL CONTINUE TO MONITOR CLOSELY.
[2020-11-03 11:45] LABS: Magnesium, Blood 1.9 mg/dL (1.6-2.4); Potassium, Blood 3.3 mmol/L (3.5-5.5)
--- NOTE | 2020-11-03 14:51 | NUR ---
Pt resting in bed upon arrival. Pt reports 5/10 in pain at her surgical sight. Pt appears somewhat withdrawn and does not engaged in conversation. Ended visit to allow Pt to rest. Called and spoke with Pt's daughter Shantell. Provided update and reviewed plan of care. Shantell expresses appreciation of the care staff has been giving her mother. Shantell expresses appreciation of the update. Palliative Care will remain available.
[2020-11-03 14:56] LABS: Base Excess Venous 0.6 mmol/L; Bicarbonate Venous 25.1 mmol/L (24.0-30.0); PCO2 Venous 33.7 mmHg (38-42); PO2 Venous 49.6 mmHg (38-42); pH Blood Venous 7.47 (7.34-7.37)
[2020-11-03 15:49] LABS: Alanine Aminotransfer (ALT/SGP 44 U/L (12-78); Albumin, Blood 1.3 g/dL (3.4-5.0); Albumin/Globulin Ratio 0.3 (0.8-1.8); Alk Phos 74 U/L (50-136); Anion Gap 10 mmol/L (6-16); Aspartate Aminotrans (AST/SGOT 111 U/L (12-37); Bilirubin, Direct 0.4 mg/dL (0.0-0.3); Bilirubin, Indirect 0.3 mg/dL (0.1-0.7); Bilirubin, Total 0.7 mg/dL (0.1-1.0); Blood Urea Nitrogen 63 mg/dL (8-24); CO2, Blood 24 mmol/L (21-32); Chloride, Blood 105 mmol/L (98-108); Creatinine, Blood 3.15 mg/dL (0.40-1.00); Globulin, Blood 4.1 g/dL (2.2-4.0); Glomerular Filtration Rate 14 (60-); Glucose, Blood 149 mg/dL (70-99); Phosphorus, Blood 3.8 mg/dL (2.5-4.9); Potassium, Blood 3.5 mmol/L (3.5-5.5); Sodium, Blood 139 mmol/L (136-145); Total Protein, Blood 5.4 g/dL (6.4-8.2)
--- NOTE | 2020-11-03 18:00 | NUR ---
SHIFT SUMMARY PT REMAINS ALERT AND ORIENTED TO SELF AND PLACE. HR HAS BEEN SINUS TACH. BP STABLE. PT HAS COMPLAINED OF PAIN TO ABD THIS SHIFT, BUT DENIES A NEED FOR MEDICATION. NEW ORDERS PROVIDED FROM DR. PÉREZ THIS SHIFT. NS INFUSING PER ODERS. HEP GTT INFUSING PER ORDERS. WILL CONTINUE TO MONITOR AND REPORT TO ONCOMING RN.
[2020-11-03 23:09] LABS: C DIFFICILE DNA NEGATIVE (Negative)
--- NOTE | 2020-11-04 06:12 | NUR ---
shift summary pt rested well through the night. alert and oriented, with intermittent confusion. tele, sinus tach, but also flips back and forth to afib. rate controlled, sats maintain >90% on 3lnc. cbg 100 and 77. abd incision c/d/i, miguelina vac in place with abd binder over incision. whittaker in place, drainig to gravity, essie care performed. incontinent of stool x2, had very large liq bm, sent for cdiff testing, came back negative. hep gtt running. ivf running at 125/hr. lle ulcer, c/d/i, pain x1 with repositioning. nausea x2. vss. call light within reach, bed in lowest position. will continue to onitor.
[2020-11-04 07:23] LABS: Hematocrit 35.2 % (33.0-51.0); Hemoglobin 11.3 g/dL (11.5-16.0); Mean Corpuscular HGB Conc 32.1 g/dL (31.5-36.5); Mean Corpuscular Volume 90 fL (80-100); Mean Platelet Volume 10.6 fL (9.1-12.4); Platelet Count 192 K/mm3 (150-400); RDW Coefficient Variation 14.8 % (11.7-14.2); RDW Standard Deviation 48.9 fL (35.1-46.3); White Blood Cell Count 19.79 K/mm3 (4.00-11.30)
[2020-11-04 07:39] LABS: International Normalized Ratio 1.01; Prothrombin Time Results 10.9 Sec (9.7-11.5)
[2020-11-04 07:53] LABS: Alanine Aminotransfer (ALT/SGP 41 U/L (12-78); Albumin, Blood 1.2 g/dL (3.4-5.0); Albumin/Globulin Ratio 0.3 (0.8-1.8); Alk Phos 68 U/L (50-136); Anion Gap 11 mmol/L (6-16); Aspartate Aminotrans (AST/SGOT 100 U/L (12-37); Bilirubin, Direct 0.5 mg/dL (0.0-0.3); Bilirubin, Indirect 0.2 mg/dL (0.1-0.7); Bilirubin, Total 0.7 mg/dL (0.1-1.0); Blood Urea Nitrogen 71 mg/dL (8-24); Bun/Creatinine Ratio 18.6 (12.0-20.0); CO2, Blood 23 mmol/L (21-32); Calcium, Blood 6.4 mg/dL (8.5-10.1); Chloride, Blood 106 mmol/L (98-108); Creatinine, Blood 3.82 mg/dL (0.40-1.00); Glomerular Filtration Rate 11 (60-); Glucose, Blood 74 mg/dL (70-99); Magnesium, Blood 1.9 mg/dL (1.6-2.4); Phosphorus, Blood 3.8 mg/dL (2.5-4.9); Potassium, Blood 3.3 mmol/L (3.5-5.5); Sodium, Blood 140 mmol/L (136-145); Total Protein, Blood 5.2 g/dL (6.4-8.2); Vancomycin, Random 17.7 ug/mL
[2020-11-04 07:55] LABS: C-REACTIVE PROTEIN, EXT RANGE >19.000 mg/dL (0.000-0.300)
[2020-11-04 08:06] LABS: BASOPHILS PERCENT MAN 0 % (0-2); EOSINOPHILS PERCENT MAN 0 % (0-6); LYMPHOCYTES ABSOLUTE MAN 0.98 K/mm3 (0.84-5.20); LYMPHOCYTES PERCENT MAN 5 % (21-46); MONOCYTES ABSOLUTE MAN 0.39 K/mm3 (0.16-1.47); MONOCYTES PERCENT MAN 2 % (4-13); SEG NEUTROPHILS PERCENT MAN 93 % (41-73); TOTAL CELLS COUNTED 100
--- NOTE | 2020-11-04 11:32 | NUR ---
1130, [facility] NURSE ETHAN INFORMED THIS RN THAT THE DAUGHTER OF THE PT HAS BEEN CONTACTED. PT CODE STATUS WAS CHANGED TO DNR/DNI PER ETHAN RN. DUKE IN PALLIATIVE WAS INFORMED. DNR BRACELET WAS APPLIED TO PT AND ON THE OUTSIDE DOOR OF PT'S ROOM.
--- NOTE | 2020-11-04 11:47 | NUR ---
Pt visit this AM. Pt obtunded this AM. Pt minimally responds to moderate level verbal stimuli. Istrate in to examine Pt. Plan for Perm Cath and dialysis today. Spoke with Primary RN Valente and discussed case. Pt showing decline today. Code status discussion with daughter may be beneficial. Spoke with fertilizer loader Sandra and discussed case. Sandra had conversation with Pt's daughter regarding plan of care and code status. Daughter reports Pt would not want CPR or to be intubated. Sandra will call hospitalist for code status change. Called daughter Shantell and offered supportive conversation. Offered therapeutic listening and validated concerns. Shantell expresses appreciation of call. Palliative Care will remain available.
--- NOTE | 2020-11-04 14:46 | NUR ---
PT LEFT UNIT VIA HOSPITALBED FOR PERMACATH INSERTION AT 1445. PT ON 3L NC. PT OCCOMPANIED BY 2X RN. IV MEDS IN STANDBY DURING PROCEDURE. IV X2 IN LEFT ARM SALINE LOCKED, POWERGLIDE ALSO SALINE LOCKED.
--- NOTE | 2020-11-04 15:50 | NUR ---
PT ARRIVED FROM [facility] AT 1545 VIA HOSPITAL BED OCCOMPANIED BY 2X RN. PT WAS ON REBREATHER AT 10L. PT DIAPHORETIC WITH ASHENED COLORED SKIN OF EXTREMITIES.
--- NOTE | 2020-11-04 18:32 | NUR ---
THIS RN CONTACTED DR WALLACE AT 1815 TO ASK IF HE WOULD LIKE TO CONTINUE THE D5 FLUIDS EVEN THOUGHT THE PT'S BLOOD GLUCOSE IS NOW STABLE. THIS RN INFORMED DR WALLACE THAT THE PT CANNOT BE DIALIZED TONIGHT. DR KENNY INSTRUCTED THIS RN TO KEEP THE D5 FLUIDS ON THE EMAR FOR IF THE GLUCOSE LEVEL OF THE PT IS BELOW 90. DR WALLACE ALSO INSTRUCTED THIS RN TO ORDER NS AT 5OML/HR WITH THE INTSTRUCTIONS TO SWITCH TO D5 IF THE BLOOD GLUCOSE IS BELOW 90.
--- NOTE | 2020-11-04 18:42 | NUR ---
AT 1835, DR PÉREZ CALLED FOR AN UPDATE ON PT IN PCU 13. THIS RN UPDATED DR PÉREZ THAT THE PT HAS BEEN OBTUND FOR MOST OF THE DAY AND THAT THE PT LEFT FOR A PERMACATH PROCEDURE ON 3L NC AND RETURNED ON 10L REBREATHER. THIS RN ALSO INFORMED DR PÉREZ THAT THE PT WAS ONLY ABLE TO SPEAK IN 1-2 SENTENCES AND THAT HTHE PT WAS VERY DIAPHORETIC UPON RETURN FROM THE PROCEDURE. DR PÉREZ INSTRUCTED THIS RN TO ORDER A STAT ABG AND A STAT RENAL PANEL AND TO CALL BACK WITH THE RESULTS.
--- NOTE | 2020-11-04 18:55 | NUR ---
SHIFT SUMMARY PT IS A/O X1-2. PT IS OBTUNDED AND UNABLE TO SPEAK FULL SENTENCES. PT STARTED THE DAY ON 3L NC AND WAS SWITCHED TO 10L REBREATHER AT AOUT 1545 DURING THE PERMACATH PROCEDURE; SEE NOTES AT 1550. O2 SATS ARE CURRENTLY >96% ON 10L REBREATHER. BP STABLE THOUGHOUT SHIFT. PT HR IN A-FIB AT A CONTROLLED RATE RANGINGING FROM 76-91 BPM. PT HAD 2 SMALL LIQUIDY BM'S ONTO ATTENDS THAT WAS IN PLACE. PT'S BLOOD GLUCOSE LEVELS DROPPED TO 56 AT 0725 AND 1013, TREATED PER EMAR. D5 OREDERED FOR GLUCOSE LEVELS <90. HEPARIN GTT SEE EMAR.
[2020-11-04 19:35] LABS: PCO2 Arterial 37.5 mmHg (35-45); PO2 Arterial 77.7 mmHg (80-100); pH Blood Arterial 7.33 (7.35-7.45)
[2020-11-04 20:18] LABS: Albumin, Blood 1.3 g/dL (3.4-5.0); Anion Gap 13 mmol/L (6-16); Blood Urea Nitrogen 76 mg/dL (8-24); Bun/Creatinine Ratio 18.1 (12.0-20.0); CO2, Blood 21 mmol/L (21-32); Calcium, Blood 6.8 mg/dL (8.5-10.1); Chloride, Blood 105 mmol/L (98-108); Creatinine, Blood 4.21 mg/dL (0.40-1.00); Glomerular Filtration Rate 10 (60-); Glucose, Blood 138 mg/dL (70-99); Potassium, Blood 4.3 mmol/L (3.5-5.5); Sodium, Blood 139 mmol/L (136-145)
[2020-11-04 20:32] LABS: Phosphorus, Blood 7.4 mg/dL (2.5-4.9)
--- NOTE | 2020-11-05 02:11 | NUR ---
UPDATE PT HAD LOW BP W A MAP OF 48, THIS RN ATTEMPTED TO CONTACT DR. PÉREZ X2 UNSUCCESSFULLY SO ORDER TO GIVE 250ML BOLUS FROM PROVIDER WAS GIVEN W IMPROVEMENT IN BP.
[2020-11-05 04:02] LABS: BASOPHILS ABSOLUTE AUTO 0.12 K/mm3 (0.00-0.23); BASOPHILS PERCENT AUTO 1 % (0-2); Hematocrit 33.4 % (33.0-51.0); Hemoglobin 10.4 g/dL (11.5-16.0); LYMPHOCYTES PERCENT AUTO 3 % (21-46); MONOCYTES ABSOLUTE AUTO 0.39 K/mm3 (0.16-1.47); MONOCYTES PERCENT AUTO 2 % (4-13); Mean Corpuscular HGB 29.1 pg (26.0-34.0); Mean Corpuscular HGB Conc 31.1 g/dL (31.5-36.5); Mean Corpuscular Volume 94 fL (80-100); Mean Platelet Volume 10.8 fL (9.1-12.4); Platelet Count 204 K/mm3 (150-400); Red Blood Cell Count 3.57 M/mm3 (3.80-5.20); White Blood Cell Count 19.68 K/mm3 (4.00-11.30)
[2020-11-05 04:14] LABS: Alanine Aminotransfer (ALT/SGP 37 U/L (12-78); Albumin, Blood 1.2 g/dL (3.4-5.0); Albumin/Globulin Ratio 0.3 (0.8-1.8); Alk Phos 71 U/L (50-136); Anion Gap 13 mmol/L (6-16); Aspartate Aminotrans (AST/SGOT 92 U/L (12-37); Bilirubin, Direct 0.4 mg/dL (0.0-0.3); Bilirubin, Indirect 0.2 mg/dL (0.1-0.7); Bilirubin, Total 0.6 mg/dL (0.1-1.0); Blood Urea Nitrogen 85 mg/dL (8-24); Bun/Creatinine Ratio 18.3 (12.0-20.0); CO2, Blood 20 mmol/L (21-32); Calcium, Blood 6.9 mg/dL (8.5-10.1); Chloride, Blood 106 mmol/L (98-108); Creatinine, Blood 4.64 mg/dL (0.40-1.00); Glomerular Filtration Rate 9 (60-); Glucose, Blood 121 mg/dL (70-99); Phosphorus, Blood 7.3 mg/dL (2.5-4.9); Potassium, Blood 4.7 mmol/L (3.5-5.5); Sodium, Blood 139 mmol/L (136-145); Total Protein, Blood 5.2 g/dL (6.4-8.2); Vancomycin, Random 26.7 ug/mL
[2020-11-05 04:21] LABS: EOSINOPHILS ABSOLUTE AUTO 0.01 K/mm3 (0.00-0.68); EOSINOPHILS PERCENT AUTO 0 % (0-6); IMMATURE GRAN PERCENT AUTO 3 % (0-1); NEUTROPHILS ABSOLUTE AUTO 18.16 K/mm3 (1.96-9.15); NEUTROPHILS PERCENT AUTO 92 % (41-73)
[2020-11-05 04:38] LABS: C-REACTIVE PROTEIN, EXT RANGE >19.000 mg/dL (0.000-0.300)
--- NOTE | 2020-11-05 07:21 | NUR ---
IN [employer] SUMMARY PT'S MENTATION IMPROVED THIS SHIFT FROM OBTUNDED TO ALERT BUT LETRHARGIC THIS AM. PT HAD LOW BP'S THIS SHIFT BUT RESPONDED WELL TO 250ML FLUID BOLUS. PT MAINTAINED O2 SATS >90% ON 6L NC. TELE SHOWING SR IN THE 80'S W PAC'S. CBG'S WNL THIS SHIFT. WILL REPORT TO ONCOMING RN.
--- NOTE | 2020-11-05 10:13 | NUR ---
PT LEFT PCU 13 FOR DIALYSIS AT 0900. PT OCCOMPANIED BY 3X RN. PT LEFT WITH OXYGEN AT 6L VIA NC. HEPARIN GTT AT 18. PT WAS ALERT UPON DEPARTURE.
[2020-11-05 12:20] LABS: Vancomycin, Random 20.4 ug/mL
--- NOTE | 2020-11-05 14:00 | NUR ---
WARM TO TOUCH/CC PT PROVIDED WITH FAN AND COOL WASH RAGS AT THIS TIME
--- NOTE | 2020-11-05 14:13 | NUR ---
UPDATE PT ARRIVED TO THE UNIT FROM DIALYSIS AT 1145. PT WAS ON 6L NC. THIS RN CONTACTED TELEMITRY TO GET A RATE AND RHYTHM CHECK. SECONDARY SCHOOL TEACHER LIBRARIAN REPORTED THAT THE PT WAS IN A-FIB AT A RATE OF 151. PT WAS HYPOTENSIVE WITH HIGH RESPIRATIONS. ELIZABETH CROWE AND THIS RN CONSULTED DR WALLACE, MIDODRINE ODERED ALONG WITH A 250ML BOLUS. BOLUS WAS HELD AFTER CONSULTING CHARGE NURSE ABOUT AUDIBLE CRACKLES AND CRACKLES BEING HEARD THROUGHOUT. MATT CROWE FROM PALLIATIVE WAS CONSULTED ALSO ABOUT THE PT'S STATUS. MATT CROWE ASKED TO KEEP HER INFORMED IF ANY THING SHANGES WITH THE PT. MIDODRONE WAS GIVEN PER EMAR. PT WAS FOUND TO HAVE STOOL IN HER ATTENDS. DURING THE BED AND ATTEND CHANGE AROUND 1300, PT BEGAN YELLING OUT "NO MORE, NO MORE." PT THEN SAID "THIS IS TORTURE. I'M DONE." ELIZABETH CROWE ASKED THE PT TO CLARIFY WHAT SHE MENAT BY "I'M DONE." PT RESPONDED SAYING "I'M DONE FIGHTING." ELIZABETH CROWE CONTACTED THE PT'S DAUGHTER WHILE IN THE ROOM. PT'S DAUGHTER WAS INFORMED OF THE PT'S DECISION TO GO ON COMFORT CARE. ELIZABETH CROWE THEN HELD THE PHONE TO PT'S EAR SO THAT THE DAUGHTER COULD SPEAK THE PT. MATT CROWE IN PALLIATIVE CARE WAS CONTACTED AND PT WAS PUT ON COMFORT CARE.
--- NOTE | 2020-11-05 14:59 | NUR ---
Spiritual care visit conducted. Patient is lying in bed and resting. Patient is not very talkative but is able to tell me that she has peace about and dying and that she is open to prayer. I gladly provide prayer. Patient also is very thirsty and so I help her sit up in bed and drink water. After she drinks some water she becomes agitated and asks to get out of bed. I immediately inform RN Roxie who immediately gets pain meds and Palliative Care RN Cailin Fabian changes her Oxygen mask to a cannula because patient was ripping the mask off and wanting to talk. Patient's daughter, Gaye arrives in the and there appears to be some tension possibly around yazdanism but Gaye mostly just tries to communicate kind words. I will continue to remain available to patient and family.
--- NOTE | 2020-11-05 16:08 | NUR ---
PT DAUGHTER AT BEDSIDE. NO SIGNS OF DISCOMFORT AT THIS TIME.
--- NOTE | 2020-11-05 16:38 | NUR ---
SHIFT SUMMARY PT WENT TO DIALYSIS AND RETURNED TO THE UNIT HYPOTENSIVE AND WITH TACHTCARDIA. PT CARE CHANGED TO COMFORT CARE; SEE NOTES 1413 ON 11/05. PT'S DAUGHTERS HAVE CAME TO SEE PT. ONE DAUGHTER AT BEDSIDE OF 1641. PT'S PAIN BEING MANAGED PER EMAR. NO SOB REPORTED OR NOTED. PT REPORTS THAT SHE IS NOT TOO WARM OR COOL.
--- NOTE | 2020-11-05 17:05 | NUR ---
UPDATE/SHIFT SUMMARY ASSISTING KIM Hernandez RN IN CARE OF PT THIS SHIFT. PT TO DIALYSIS THIS AM. WHEN BACK FROM DIALYSIS PT WAS HYPOTENSIVE AND TACHYCARDIC, SEE EHR. PHYSICIAN NOTIFIED. MIDODRINE 5 MG GIVEN IN ORDER TO ATTMEPT TO GIVE METOPROLOL. ORDERS FOR 250 ML BOLUS ORDERED, HELD D/T PT'S DECLINING RESPIRATORY STATUS. LUNG SOUNDS COARSE AT THIS TIME. PT HAD LARGE BM. WHEN CHANGING PT, PT STATES SHE IS READY TO GIVE UP. PT WANTS TO BE "DONE" AND REPORTS EXTREME PAIN. PT BEGINS TO DESAT AND IN NEED OF 15 L VIA NONREBRATHER. PT CONT TO HAVE DECREASE IN LOC. PHYSICIAN NOTIFIED. PT'S DAUGHTERS NOTIFIED OF CHANGE IN PT STATUS. PALLIATIVE CARE NOTIFIED. PALLIATIVE CARE TO ROOM WITH PHONE TO TALK TO DAUGHTER DIANE AND PT. DIANE ASKS IF PT IS READY TO END HER FIGHT, PT STATES "YES I AM DONE FIGHTING." PER DAUGHTER, AND PT PT IS NOW ON COMFORT MEASURES. COMFORT CARE ORDERS PLACED BY PALLIATIVE CARE RN. PT REFUSING REPOSITIONS D/T PAIN. PT MEDICATED FOR PAIN AND ANXIETY. DAUGHTER DIANE AND DAUGHTER NEDA AT BEDSIDE WITH PT. WILL CONT TO MONITOR UNTIL REPORT GIVEN TO NIGHTSHIFT RN.
--- NOTE | 2020-11-05 17:38 | NUR ---
PT'S DAUGHTER AT BEDSIDE. PT'S PAIN TREATED PER EMAR. PT'S ANXIETY TREATED PER EMAR. PT COFORTABLE WITH FAN BLOWING ON HER AND BLANKET ON. PT'S DAUGHTER PROVIDED WITH A WARM BLANKET.
--- NOTE | 2020-11-05 19:40 | NUR ---
ASSUMED CARE OF PATIENT AT 1900, PATIENT WAS RESTING SITTING UP WITH HER EYES CLOSED. PATIENT APPEARS COMFORTABLE. DAUGHTER DIANE AT BEDSIDE.
--- NOTE | 2020-11-05 20:41 | NUR ---
multiple visits today pt declining diaphoreticc legs mottled bp dropping. pt placed on comfort care. much more comfortable able to interact a little bit with family but mostly non verbal. will continue to monitor symptoms. abdomen more distended increased jvd. may need highter doses of roxinaol.
--- NOTE | 2020-11-05 22:30 | NUR ---
PATIENT APPEARED TO BE UNCOMFORTABLE WITH AUDIBLE GROANS, GRIMACING, WITHDRAWING FROM ANY KIND OF TOUCH. MEDICATED PT WITH PRN ATIVAN AND DILAUDID. UPON REASSESSMENT, PATIENT IS NO LONGER GRIMACING AND ACCEPTS BEING TOUCHED. ADDED ANOTHER BLANKET FOR COMFORT.
--- NOTE | 2020-11-06 03:02 | NUR ---
ASSUMED CARE OF PATIENT AT 1900. PATIENT IS LETHARGIC AND SLEEPING. DAUGHTER DIANE HAS BEEN AT THE BEDSIDE THE WHOLE NIGHT. AROUND MIDNIGHT, PATIENT BECAME WARM AND CLAMMY (TEMP 96.6 TEMPORAL). ELEVATED THE LEGS DUE TO THE 3+ PITTING EDEMA, AND REMOVED OLD BANDAGE WRAP. DAUGHTER NEDA CALLED, DIANE AUTHORIZED HER TO RECEIVE AN UPDATE. NEDA MAY COME IN DURING DAYSHIFT. PATIENTS RR MAINTAINING 20-24/MIN, STILL ON TELE AND AVERAGING 80'S NSR WITH PAC'S. WILL CONTINUE TO MONITOR PATIENT FOR COMFORT AND REPORT TO ONCOMING NURSE ANY UPDATES.
[2020-11-06 07:10] LABS: HBSAG SCREEN Negative (Negative); HEP A AB, IGM Negative (Negative); HEP B CORE AB, IGM Negative (Negative); HEP C VIRUS AB <0.1 (0.0-0.9)
--- NOTE | 2020-11-06 11:28 | NUR ---
REPORT GIVEN/PT TRANSFER REPORT GIVEN TO SEBASTIEN LEON. PT TRANSPORTED TO ROOM 358 BY BED WITH BELONGINGS AND CHART BY THIS RN, OPS MANAGER AND ANODE MACHINE OPERATOR. PT DAUGHTER AT BEDSIDE WITH PT AT THIS TIME.
--- NOTE | 2020-11-06 15:36 | NUR ---
ASSUMED CARE FOR PT. PTS FAMILY MEMBER (AZUL) AT BEDSIDE. PT REPOSITIONED AND GIVEN PARTIAL BED BATH ONLY DUE TO PRESENCE OF PAIN. ORAL CARE AND DELORIS CARE COMPLETED. PT ON 2L O2 FOR COMFORT. PT HAS JEREMY IV ACCESS AND LAC IV ACCESS. PT ALSO HAS PERMACATH ACCESS TO R CHEST. INCISION TO ABDOMEN THAT IS COVERED WITH DRESSING. DRESSING ALSO OBSERVED ON LLE. PT AND FAMILY HAVE CALL LIGHT WITHIN REACH, BED IN LOW POSITION AND LOCKED. COMFORT CART ORDERED FOR FAMILY. WILL CONTINUE TO MONITOR FOR CHANGES AND DISCOMORT.
--- NOTE | 2020-11-06 16:57 | NUR ---
PT RESTING IN BED WITH FAMILY FRIEND (AZUL) AT BEDSIDE. PT IS ABLE TO WITHDRAW FROM PAINFUL STIMULI. ATIVAN 1MG GIVEN FOR NOTICABLE INCREASED ANXIETY. WILL CONTINUE TO PROVIDE SUPPORT FOR FAMILY/FRIEND AND MONITOR PATIENT FOR CHANGES OR SIGNS OF DISCOMFORT/ANXIETY.
--- NOTE | 2020-11-06 19:10 | NUR ---
BEGINGING SHIFT SUMMARY PT APPEARS TO BE COMFORTABLE, LAYING IN BED. FRIEND AZUL AT BEDSIDE. BEDSIDE FAN ON. URINARY CATH PRESENT AND FLOWING. CALL LIGHT WITHIN REACH. BED SIDE RAILS UP X3. PT PINK, WARM AND DRY. PT IS NON-VERBAL. FACE SCALE, NO PAIN, NO DISTRESS. WILL CONTINUE TO MONITOR.
--- NOTE | 2020-11-06 20:19 | NUR ---
RECEIVED PT FROM PCU 13 AT 1120, PT KEPT IN BED AND SWITCHED BEDS. PT APPEARES COMFORTABLE WITH EYES CLOSED, RESP EVEN UNLABORED. DAUGHTER AT BEDSIDE AND INVOLVED IN CARE, VERY TIRED AND DECIDED TO GO BACK HOME TO REST. FAMILY FRIEND AZUL TAKING SHIFT AT BEDSIDE TO BE WITH PT. DECISION TO TX PT TO [facility] ROOM 405. MEDICATED BEFORE TX. REPORT TO RN. TX 1530 VIA BED. CALLED DAUGHTER DIANE TO INFORM OF MOVE.
--- NOTE | 2020-11-06 20:37 | NUR ---
pt unresponsive and slowly progressing. profound jvd. repirations less labored. her life long friend and neighbor is sitting luis.
--- NOTE | 2020-11-06 23:44 | NUR ---
ROUNDING ON PT, APPEARED HOT, SWEATY AND UNCOMFORTABLE. PT GIVEN DILAUDID 2MG IV, AND TYLENOL SUPPOSITORY. CLEANED PT AND CHANGED SALDIVAR PAD. ORAL CARE PROVIDED WELL LIP CARE. PT URINARY CATHERTER APPEARS TO BE FUNCTIONING AND FLOWING, 100CC OF DARK CLOUDY URINE. PT REPOSITED. NOW APPEARS TO BE COMFORTABLE. WILL CONTINUE TO MONITOR.
--- NOTE | 2020-11-07 02:43 | NUR ---
COMFORT CARE ASSESSMENT PT APPEARS TO BE RESTING COMFORTABLY, IN NO APPARENT DISTRESS. OXYGEN AT 2L PER HIGH FLOW N/C. PT HAS BLANKETS ON, PINK, WARM AND DRY. CALL LIGHT WITHIN REACH. SIDE RAILS UP X3. WILL CONTINUE TO MONITOR
--- NOTE | 2020-11-07 04:47 | NUR ---
COMFORT CARE ROUNDING PT LAYING IN BED SHOWING SOME SIGNS OF PAIN WITH REPOSTITIONING, MEDICATION PROVIDED, SEE MAR. PT WARM TO THE TOUCH, FAN PLACED ON PT, BLAKETS REMOVED. PT CONTINUES ON OXYGEN PER N/C AT 2L, SEE VITALS. WILL CONTINUE TO MONITOR.
--- NOTE | 2020-11-07 04:52 | NUR ---
OUTPUT 50ML OF DARK CLOUDY URINE.
--- NOTE | 2020-11-07 05:44 | NUR ---
END SHIFT SUMMARY PT REMAINED WITH EYES CLOSED AND SLEEPING THROUGHOUT THE SHIFT. PT REQUIRED MEDICATION FOR ELEVATED TEMPERATURE, SEE MAR, FAN BLOWING ON PT, BLAKETS REMOVED. PROVIDED PAIN MEDICATION PER MAY. PT HAD A BM DURING SHIFT, SKIN CARE AND SHEETS PROVIDED. IV REMOVED FROM THE LT FOREARM, REDDNESS NOTED AT SITE, NO S/S OF INFECTION. PT BREATHING RATE AND RYTHEM REMAINED CONSTANT. PT MOSTLY NON-VERBAL, WITH GRIMACING AND MOANING DURING REPOSITIONING. URINARY CATH REMAINS INPLACE AND FLOWING. WILL REPORT TO DAY SHIFT RN.
--- NOTE | 2020-11-07 07:15 | NUR ---
PT REPORT TAKEN FROM NIGHT RN. PT APPEARS TO BE RESTING COMFORTABLY, SLIGHTLY ELEVATED HOB WITH NASAL CANULA SUPPLYING O2 AT 2L. CALL LIGHT AND SIDE TABLE WITHIN REACH. END NOTE.ORSC.RDS
--- NOTE | 2020-11-07 12:29 | NUR ---
RN PERFORMED ORAL CARE HOURLY TO LUBERCATE MOUTH AND LIPS. PT BED LOCKED IN LOWEST POSITION W HOB ELEVATED 45DEGREES, CALL LIGHT AND TABLE WITHIN REACH OF PT. O2 AT 2L VIA NASAL CANULA. END NOTE ORSC.RDS
--- NOTE | 2020-11-07 12:33 | NUR ---
DIANE DAUGHTER CALLED @ 1212 FOR UPDATE ON MOTHERS CONDITION. TRATE PT ASSESSMENT AT 1230 AND DISCUSSED FAM INVOLVEMENT, PT PALIATIVE CARE AND WAS INFORMED OF COMFORT CARE MEASURES. END ORSC.RDS.
--- NOTE | 2020-11-07 17:35 | NUR ---
DAUGHTER DIANE CALLED [phone] FOR UPDATE ON PT STATUS. INFORMED OF COMFORT CARE MEASURES. DIANE STATED WISH TO BE CONTACTED BY PHONE AT ANY HOUR OF CHANGE TO PT STATUS AND WISHED TO DISCOURAGE HER SISTER FROM VISITING PT AT THIS TIME END NOTE ORSC.RDS.
--- NOTE | 2020-11-07 19:03 | NUR ---
END SHIFT SUMMARY. PT CHANGE OF SHIFT REPORT GIVEN TO ONCOMING RN. PT REMAINED WITH EYES CLOSED AND SLEEPING THROUGHOUT THE SHIFT. PT DID NOT REQUIRED MEDICATION FOR ELEVATED TEMPERATURE: FAN BLOWING ON PT, BLAKETS REMOVED. PROVIDED PAIN MEDICATION PER MAY. PT HAD NO BM AND APOX. 16 CC CONCENTRATED DARK COLORED URINE REMOVED FROM INDWELLING CATH. NO S/S OF INFECTION. PT BREATHING RATE AND RYTHEM REMAINED CONSTANT. PT TOTALLY NON-VERBAL, WITH GRIMACING AND MOANING DURING REPOSITIONING. URINARY CATH REMAINS INPLACE AND FLOWING VERY SLOWLY. ALL INFO TRANSMITTED TO NIGHT RN. END NOTE ORSC.RDS.
--- NOTE | 2020-11-07 19:15 | NUR ---
WARM TO THE TOUCH FAN PLACED ON PT. PT USING SHEET FOR COVERAGE VS BLANKET.
--- NOTE | 2020-11-07 21:09 | NUR ---
BEGINING OF SHIFT SUMMARY RECIEVED REPORT FROM DAY TIME RN. PT RESTING IN BED WITH EYES CLOSED, COMFORT MEDICATION PROVIDED; SEE MAR. POWER GLIDE RIGHT UPPER ARM INTACT AND FLUSHING, BRUISING PRENSENT. BRUSING ON LEFT ARM NEAR DC IV SITE, NO S/S OF INFECTION. PERMACATH RIGHT CHEST IN PLACE, NO REDNESS NOTED, NO S/S OF INFECTION. WILL CONTINUE TO MONITOR AND PROVIDE COMFORT.
--- NOTE | 2020-11-07 21:56 | NUR ---
COMFORT CARE REPOSITIONED PT, PILLOWS IN PLACE. PT REMAINS RESTING WITH EYES CLOSED ONLY MOANING DURING REPOSITIONING. UMBILLICAL DRESSING CLEAN, DRY INTACT. LOTION PRESENT ON BLE. URINARY CATH IN PLACE, NO OUTPUT AT THIS TIME, LINE IS CLEAR. WILL CONTINUE TO MONITOR AND PROVIDE COMFORT MEASURES.
--- NOTE | 2020-11-08 04:25 | NUR ---
COMFORT CARE ROUNDING PT REMAINS ON HIGH FLOW N/C AT 2L, BREATHING PATTERN UNCHANGED. PT MOANS DURING REPOSITIONING. ORAL CARE DONE. PT SEEMS TO BE COMFORTABLE. EYES ARE CLOSED. WILL CONTINUE TO MONITOR.
--- NOTE | 2020-11-08 05:14 | NUR ---
END OF SHIFT SUMMARY PT REMAINED WITHOUT INCIDENT THROUGHOUT THE NIGHT. NO FAMILY THROUGHOUT SHIFT. PT REMAINS ON 2L HIGH FLOW O2 PER N/C, RATE AND RYTHEM OF RESPIRATIONS UNCHANGED. NO BOWEL MOVEMENTS TO REPORT. LESS THAN 20ML OF URINE OUTPUT, LINE CLEAR OF URINE. PT MEDICATED PER MAY. POWER GLIDE IN RT UPPER ARM, DRESSING IN PLACE. BRUISING BILATERAL FOREARMS, NO S/S INFECTION. DRESSING LT LOWER EXTREMITY AND UMBILICAL REGION. PT MOANS DURING REPOSITIONING, PILLOWS PLACED FOR COMFORT UNDER ARMS AND LEGS. WILL REPORT TO DAY SHIFT RN.
--- NOTE | 2020-11-08 06:55 | NUR ---
CHANGE OF SHIFT REPORT FROM PM RN. PT SLEEPING WITH BED LOCKED LOWEST POSITION WITH CALL LIGHT WITHIN REACH, ROOM ORGANIZED FREE OF FALL HAZARDS. HOB ELEVATED 45DEGREES, PT IN COMFORTABLE BODY POSITION. LIGHTS DIMMED WITH QUITE MUSIC PLAYING. END NOTE [facility].RDS.[id number].
--- NOTE | 2020-11-08 08:52 | NUR ---
CAME TO ASSESS PT AT 0850. TO DC IV DILAUDID AND RN TO UTILIZE SUBLINGUAL ROXINAL 5-20MG PRESCRIBED. END NOTE ORSC.RDS.
--- NOTE | 2020-11-08 15:52 | NUR ---
DAUGHTER DIANE VISITING PT ARRIVED AT 1545. DAUGHTER ASKED ABOUT ANY PT PREFERENCES FOR HOMES. RN STATED THAT CHARTS WOULD BE CHECKED BUT IF NOTHING WAS DISCOVERED, DAUGHTER WISHES PT BODY TO BE TRANSMITTED TO [facility]. END NOTE. ORSC.RDS.
--- NOTE | 2020-11-08 17:43 | NUR ---
PATIENT SAYS HE IS HAVING ALOT OF PAIN, 8 OUT OF 10. REQUESTS PAIN MED OTHER THAN TYLENOL. STATES THAT IF HE DOES NOT GET ANYTHING FOR HIS PAIN HE MIGHT WELL GO HOME. PHYSICIAN NOTIFIED.
--- NOTE | 2020-11-08 19:05 | NUR ---
END SHIFT SUMMARY. PT CHANGE OF SHIFT REPORT GIVEN TO ONCOMING RN. PT REMAINED WITH EYES CLOSED AND SLEEPING THROUGHOUT THE SHIFT. PT DID NOT REQUIRED MEDICATION FOR ELEVATED TEMPERATURE: FAN BLOWING ON PT, BLAKETS REMOVED. PROVIDED PAIN MEDICATION PER MAR SUBLINGUAL ROXANOL 20MG QH. PT HAD NO BM.DAUGHTER DIANE CAME AND SAT WITH PT THROUGHOUT SHIFT AND TALKED QUITLY TO HER MOTHER WITH KIND WORDS OF LIFE AFRAMATION. PT BREATHING RATE AND RYTHEM REMAINED CONSTANT. PT TOTALLY NON-VERBAL AND APPEARS TO BE RESTING COMFORTABLY. WANTED PT DC PLAN PROCESSED NON-VERBAL, WITH GRIMACING AND MOANING DURING REPOSITIONING. URINARY CATH REMAINS INPLACE AND FLOWING VERY SLOWLY. ALL INFO TRANSMITTED TO NIGHT RN. END NOTE ORSC.SUMAYA.
--- NOTE | 2020-11-08 20:38 | NUR ---
COMFORT CARE COMPLETED- MOISTEN LIPS APPLIED CHAPSTICK, TURNED FAN AND RADIO ON.
--- NOTE | 2020-11-08 22:27 | NUR ---
PATIENT HAD A BM IN ATTENDS. PATIENT WAS CHANGED AND GAVE A PARTIAL BED BATH. PAIENT BEDDING CHANGED AND NEW GOWN PUT ON. MOISTENED PATIENTS LIPS AND PUT LIP BALM ON. CALL LIGHT WITHIN REACH AND PATIENT BED IN LOWEST LOCKED POSITION.
--- NOTE | 2020-11-09 00:59 | NUR ---
PATIENT REPOSITIONED AND WIPED FACE WITH COOL CLOTH. PATIENT LIPS MOISTENED AND LIP BALM PUT ON. RADIO ON AND BED IN LOWEST LOCKED POSITION.
--- NOTE | 2020-11-09 03:40 | NUR ---
PATIENT REPOSITIONED AND BOWEL MOVEMENT CLEANED UP. PATIENT BED AND GOWN CHANGED. PATIENT VOMITED 50ML OF GREEN FLUID. PATIENT SUCTIONED AND FACED WIPED WITH COOL CLOTH. PATIENT LIPS MOISTENED AND LIP BALM APPLIED. BED IN LOWEST LOCKED POSITION. WILL CONTINUE TO MONITOR.
--- NOTE | 2020-11-09 05:17 | NUR ---
PATIENT LIP MOISTENED AND LIP BALM APPLIED. PATIENT NON VERBAL AND ON 2L HIGH FLOW NC. BED IN LOWEST LOCKED POSITION. WILL CONTINUE TO MONITOR.
--- NOTE | 2020-11-09 06:02 | NUR ---
WALKED INTO ROOM AT 0532 AND MARGARITA CROWE WAS IN THERE AND STATED PATIENT PASSED AT 0531. PATIENT HAD NO RESPIRATIONS AND NO PULSE. NURSING QUARTZ MINER WAS NOTIFIED AND SHE IS STARTING THE FINAL DISCHARGE PAPERWORK. I CALLED AND NOTIFIED DAUGHTER DIANE AND CALLED DR NOLAN TO LET HIM KNOW TIME OF .
--- NOTE | 2020-11-09 11:34 | NUR ---
CHAPAL OF THE ROSES CAME BY TO OPERATORS TEACHER PT. CLOTHING, BOOK AND BLANKET GIVEN TO CONSTRUCTION LINEMAN. THEY AGREED TO TAKE THEM AND GIVEN THEM TO FAMILY. NO BELONGINGS LEFT IN ROOM OTHER THAN A BOQUET OF PERSAUD THAT FAMILY WISHED TO LEAVE. PT DISCHARGED OUT OF THE BUILDING AT 1125. I SIGNED FOR RELEASE OF BODY. CALLED NURSING DIAL PAINTER TO DISCHARGE PT FROM FACILITY APPROX 1135. YUSUF,RN
[2020-11-10 02:09] LABS: (LD) FRACTION 1 20 % (17-32); (LD) FRACTION 2 30 % (25-40); (LD) FRACTION 3 20 % (17-27); (LD) FRACTION 4 13 % (5-13); (LD) FRACTION 5 17 % (4-20); LDH 830 IU/L (119-226)
== END 2020-11-09 12:00 | DRG 353 ==
LOC: ER 19:04 → EDSTATUS 19:05 → ERHOLD 23:14 → SURS 23:14 → PCU 23:14 → SURS 10-27 09:37 → PCU 10-31 06:08 → MEDS 11-06 11:16 → ORSCIP 11-06 15:08
PROVIDERS: Emergency Medicine; Family Medicine; Internal Medicine; Internal Medicine Cardiovascular Disease; Internal Medicine Nephrology; Physician Assistant; Surgery; ADMIT Internal Medicine
PROC: 0WUF0JZ Supplement Abdominal Wall with Synthetic Substitute, Open Approach (ICD-10-PCS; principal; 2020-10-27 12:45)
PROC: 0JH63XZ Insertion of Tunneled Vascular Access Device into Chest Subcutaneous Tissue and Fascia, Percutaneous Approach (ICD-10-PCS; 2020-11-04)
PROC: 02HV33Z Insertion of Infusion Device into Superior Vena Cava, Percutaneous Approach (ICD-10-PCS; 2020-11-04)
PROC: B518YZA Fluoroscopy of Superior Vena Cava using Other Contrast, Guidance (ICD-10-PCS; 2020-11-04)
PROC: 5A1D70Z Performance of Urinary Filtration, Intermittent, Less than 6 Hours Per Day (ICD-10-PCS; 2020-11-05)
DX: K42.0 Umbilical hernia with obstruction, without gangrene (principal); A41.9 Sepsis, unspecified organism; R65.20 Severe sepsis without septic shock; J69.0 Pneumonitis due to inhalation of food and vomit; N17.0 Acute kidney failure with tubular necrosis; E87.1 Hypo-osmolality and hyponatremia; K56.7 Ileus, unspecified; N28.0 Ischemia and infarction of kidney; Z51.5 Encounter for palliative care; Z66 Do not resuscitate; E87.6 Hypokalemia; Z20.822 Contact with and (suspected) exposure to COVID-19; E86.0 Dehydration; I48.0 Paroxysmal atrial fibrillation; R74.01 Elevation of levels of liver transaminase levels; Z86.73 Personal history of transient ischemic attack (TIA), and cerebral infarction without residual deficits; Z90.49 Acquired absence of other specified parts of digestive tract; Z79.82 Long term (current) use of aspirin; Z79.899 Other long term (current) drug therapy; E11.69 Type 2 diabetes mellitus with other specified complication; E88.09 Other disorders of plasma-protein metabolism, not elsewhere classified; Z68.39 Body mass index [BMI] 39.0-39.9, adult; E11.65 Type 2 diabetes mellitus with hyperglycemia; Z79.4 Long term (current) use of insulin; I87.2 Venous insufficiency (chronic) (peripheral); N18.9 Chronic kidney disease, unspecified; E11.22 Type 2 diabetes mellitus with diabetic chronic kidney disease; I12.9 Hypertensive chronic kidney disease with stage 1 through stage 4 chronic kidney disease, or unspecified chronic kidney disease; E11.621 Type 2 diabetes mellitus with foot ulcer; L97.519 Non-pressure chronic ulcer of other part of right foot with unspecified severity; E66.9 Obesity, unspecified; E87.70 Fluid overload, unspecified
CPT/HCPCS: 36415; 36558; 36600; 51703; 71045; 74019; 74022; 74176; 74177; 76770; 76937; 77001; 80048; 80053; 80069; 80074; 80202; 81001; 82010; 82248; 82803; 82947; 83605; 83615; 83625; 83690; 83735; 84100; 84132; 84145; 84484; 85025; 85610; 85651; 85730; 86140; 86317; 87040; 87077; 87086; 87106; 87186; 87493; 93005; 93010; 93306; 93975; 96372; 96374; 96375; 97110; 97116; 97162; 97166; 97530; 97535; 99152; 99153; 99285-25; A9270; C1750; C1769; C1781; C1894; C9113; J0282; J0690; J1100; J1160; J1170; J1644; J1650; J1815; J1940; J1956; J2060; J2250; J2405; J2543; J2550; J2704; J2765; J3010; J3370; J3480; J7030; J7040; J7050; J7060; P9041; Q9967; U0004